=== PATIENT | male | born 1950 | race Caucasian/White ===

== ENCOUNTER → 2016-11-27 | Outpatient (REF) | payer MEDICARE ==
[~2016-11-27] MED LIST: /PANT40TA; /WARF25TA PO; /WARF5TA; AMLO10TA OR; AMLO10TAB; ASPI1TAB PO; ASPI325T; ATEN100T PO; AVOD0.5C PO; CHONDROITIN; COUM10TA; DULO30CA PO; IBUP400T; IBUP600T26 PO; K-TA10TA OR; KLOR1TAB69 PO; LIPI10TA PO; LISI20TA5; NABU500T OR; NABU50TA PO; NIAS500T2; OXYC-274 PO; PANT40TA2 PO; PERC5TAB8; PERCOCET PO; TYLE325T5 PO; VOLTAREN TOP; ZEST20TA4 PO; ZYLO300T4 PO; [UNRECOGNIZED DRUG - OTHER]; [UNRECOGNIZED DRUG - OTHER]; alfuzosin OR; aspirin; fish oil; potassium OR; uroxatral
== END ==
LOC: M LAB REF 12:09
PROVIDERS: ATTEND Physician Assistant Medical
DX: J02.9 Acute pharyngitis, unspecified (principal)

== ENCOUNTER 2017-07-17 10:48 | Outpatient (CLI) | payer MEDICARE ==
[~2017-07-17] VITALS: Ht 165.1 cm; Wt 95.7 kg
[~2017-07-17 10:48] MED LIST changes: +ADVI200C PO; +ALFU10TA2 PO; +ALLO15TA PO; +AMLO10TA2 PO; +ATOR1TAB19 PO; +CINN500C9 PO; +DUTA1CAP PO; +IBUP-1022 PO; -IBUP600T26 PO; +LISI20TA3 PO; +NABU500T PO; -NABU50TA PO; +OMEP40CA2 PO; +POTA10CA PO
[2017-07-17] MEDS ORDERED: NS 1,000 ML IV SCH (11:00)
[2017-07-17] MEDS ORDERED: LIDOCAINE 2% INJ 100 MG/5 ML SDV (FOR ANES.) As Ordered ONE (12:50)
[2017-07-17] MEDS ORDERED: PROPOFOL 500 MG/50 ML VIAL As Ordered ONE (12:50)
--- NOTE | 2017-07-17 13:09 | ROOR ---
Patient Name: Winston Wagner Procedure Date: 07/17/2017 12:46 PM Date of : 1950 Age: 67 Room: [facility] Gender: Male Note Status: Finalized Procedure: Colonoscopy Indications: Screening patient at increased risk: Family history of 1st-degree relative with colorectal cancer at age 60 years (or older) Providers: Baldo Gallardo Jr, MD Referring MD: JOSETTE ADAME JR, MD Requesting Provider: Medicines: Propofol per Anesthesia Complications: No immediate complications. Procedure: Pre-Anesthesia Assessment: - Prior to the procedure, a History and Physical was performed, and patient medications and allergies were reviewed. The patient is competent. The risks and benefits of the procedure and the sedation options and risks were discussed with the patient. All questions were answered and informed consent was obtained. Patient identification and proposed procedure were verified by the physician and the nurse in the pre-procedure area and in the procedure room. Mental Status Examination: alert and oriented. Airway Examination: normal oropharyngeal airway and neck mobility. Respiratory Examination: clear to auscultation. CV Examination: normal. ASA Grade Assessment: II - A patient with mild systemic disease. After reviewing the risks and benefits, the patient was deemed in satisfactory condition to undergo the procedure. The anesthesia plan was to use moderate sedation / analgesia (conscious sedation). Immediately prior to administration of medications, the patient was re-assessed for adequacy to receive sedatives. The heart rate, respiratory rate, oxygen saturations, blood pressure, adequacy of pulmonary ventilation, and response to care were monitored throughout the procedure. The physical status of the patient was re-assessed after the procedure. The Colonoscope was introduced through the anus and advanced to the cecum, identified by appendiceal orifice and ileocecal valve. The colonoscopy was performed without difficulty. The patient tolerated the procedure well. The quality of the bowel preparation was adequate and good. Findings: Multiple small and large-mouthed diverticula were found in the sigmoid colon. The rectum, descending colon, transverse colon, ascending colon, cecum, appendiceal orifice and ileocecal valve appeared normal. A small polyp was found in the hepatic flexure. The polyp was removed with a jumbo cold forceps. Resection and retrieval were complete. Impression: - Diverticulosis in the sigmoid colon. - The rectum, descending colon, transverse colon, ascending colon, cecum, appendiceal orifice and ileocecal valve are normal. - One small polyp at the hepatic flexure, removed with a jumbo cold forceps. Resected and retrieved. Recommendation: - Repeat colonoscopy in 5 years for surveillance. Baldo Gallardo MD Baldo Gallardo Jr, MD 07/17/2017 1:08:48 PM This report has been signed electronically. Number of Addenda: 0 Note Initiated On: 07/17/2017 12:46 PM Estimated Blood Loss: Estimated blood loss: none.
[2017-07-17 13:25] VITALS: BP 137/78
== END 2017-07-17 13:39 | disposition home or self-care (01) ==
LOC: M OPP 10:48
PROVIDERS: ATTEND Surgery
DX: Z12.11 Encounter for screening for malignant neoplasm of colon (principal); Z80.0 Family history of malignant neoplasm of digestive organs; D12.3 Benign neoplasm of transverse colon; K57.30 Diverticulosis of large intestine without perforation or abscess without bleeding; K21.9 Gastro-esophageal reflux disease without esophagitis; E66.9 Obesity, unspecified; I10 Essential (primary) hypertension; E78.5 Hyperlipidemia, unspecified; R12 Heartburn; M19.90 Unspecified osteoarthritis, unspecified site; Z96.653 Presence of artificial knee joint, bilateral; Z72.0 Tobacco use; Z79.82 Long term (current) use of aspirin; Z79.899 Other long term (current) drug therapy; Z80.3 Family history of malignant neoplasm of breast; Z80.8 Family history of malignant neoplasm of other organs or systems

== ENCOUNTER 2019-02-16 08:26 | Day surgery (SDC) | payer MEDICARE ==
[~2019-02-16] VITALS: Ht 162.6 cm; Wt 99.8 kg
[~2019-02-16 08:26] MED LIST changes: -/PANT40TA; -/WARF25TA PO; -/WARF5TA; +ADVI1CAP2 PO; -ADVI200C PO; -ALLO15TA PO; +ALLO300T2 PO; -AMLO10TA2 PO; +AMLO10TA5 PO; -ASPI1TAB PO; +ASPI81TA26 PO; +COUM1TAB17; +COUM1TAB18 PO; -DULO30CA PO; +DULO30CA9 PO; +KLOR10TA76 PO; +LIDOCAINE 1% MDV 20ML VIAL SQ PRN; +LR 1,000 ML IV ONE; +NABU-126 PO; +OXYC1TAB23 PO; -PERCOCET PO; -POTA10CA PO; +PROT1TAB2; -ZYLO300T4 PO; +ZYLO300T6 PO; +ceFAZolin SOD 1 GM in D5W MINI-BAG PLUS 50 ML IV ONE
[2019-02-16] MEDS ORDERED: ROCURONIUM BROMIDE 50 MG/5 ML VIAL As Ordered ONE (09:09)
[2019-02-16] MEDS ORDERED: PROPOFOL 200 MG/20 ML VIAL As Ordered ONE (09:09)
[2019-02-16] MEDS ORDERED: fentaNYL 250 MCG/5 ML INJECTION (J3010) As Ordered ONE (09:09)
[2019-02-16] MEDS ORDERED: LIDOCAINE 2% INJ 100 MG/5 ML SDV (FOR ANES.) As Ordered ONE (09:09)
[2019-02-16] MEDS ORDERED: MIDAZOLAM INJ 2 MG/2 ML VIAL (J2250) As Ordered ONE (09:09)
[2019-02-16] MEDS ORDERED: BUPIVACAINE HCL 0.25% 10 ML VIAL As Ordered ONE (10:01)
[2019-02-16] MEDS ORDERED: BUPIVACAINE LIPOSOME/PF 1.3% 20ML VIAL (13.3MG/ML)(EXPAREL)(C9290 PER1MG) As Ordered ONE (10:02)
[2019-02-16] MEDS ORDERED: ePHEDrine SULFATE 25 MG/5 ML(5MG/ML) SYRINGE As Ordered ONE (10:56)
[2019-02-16] MEDS ORDERED: SUGAMMADEX SODIUM 500 MG/5 ML VIAL (BRIDION) As Ordered ONE (10:57)
[2019-02-16] MEDS ORDERED: dexameTHASONE 4 MG/ML 1ML VIAL (J1100) As Ordered ONE (10:58)
[2019-02-16] MEDS ORDERED: ONDANSETRON 4MG/2ML VIAL (J2405) As Ordered ONE (10:58)
[2019-02-16] MEDS ORDERED: KETOROLAC 60 MG/2 ML VIAL (J1885) As Ordered ONE (10:58)
--- NOTE | 2019-02-16 11:32 | RO ---
DATE OF PROCEDURE: 02/16/2019 PREOPERATIVE DIAGNOSIS: Symptomatic umbilical hernia. POSTOPERATIVE DIAGNOSIS: Symptomatic umbilical hernia. PROCEDURE: Umbilical hernia repair with ventral patch. SURGEON: Baldo Gallardo MD ANESTHESIA: General endotracheal anesthesia. ESTIMATED BLOOD LOSS: Minimal. FLUIDS: Crystalloid. BRIEF PROCEDURE SUMMARY: The patient was brought to the operating and was given general anesthesia. After adequate anesthesia and preoperative antibiotics were given the patient was prepped and draped in the usual sterile fashion. Next, a supraumbilical incision was made with skin knife. Blunt dissection was carried down to fascia. Fascia was followed circumferentially around the umbilicus and the hernia sac was transected at this level revealing omentum within the hernia sac itself. The preperitoneal fat that had been coming through the hernia sac was transected at the level of fascia and palpating the peritoneum posterior it was nice and circumferentially intact. The ventral patch was placed in the peritoneal cavity, brought up circumferentially around the fascial defect and then the tails of mesh were sutured superiorly and inferiorly with 0 Ethilon and 0 Ethilon [id number] times three was used close the fascial defect. 3-0 Vicryl was used close dermis, 4-0 Vicryl was used to approximate skin. Steri-Strips and dry sterile dressing was applied. The patient was awakened, extubated, brought to recovery room awake, alert hemodynamic stable.
[2019-02-16] MEDS ORDERED: fentaNYL 100 MCG/2 ML INJECTION (J3010) IV PRN (11:45)
[2019-02-16] MEDS ORDERED: ONDANSETRON 4MG/2ML VIAL (J2405) IV PRN ×2 (11:45)
[2019-02-16] MEDS ORDERED: NORCO, ANEXSIA 5/325MG TABLET (HYDROcodone/ACETAMINOPHEN) PO PRN (11:45)
[2019-02-16] MEDS ORDERED: PERCOCET 5MG/325MG TAB PO PRN (11:45)
[2019-02-16] MEDS ORDERED: LR 1,000 ML IV SCH ×2 (11:45)
[2019-02-16 12:40] VITALS: BP 125/58
== END 2019-02-16 12:55 | disposition home or self-care (01) ==
LOC: M SDC 08:26
PROVIDERS: ATTEND Surgery
DX: K42.9 Umbilical hernia without obstruction or gangrene (principal); I10 Essential (primary) hypertension; E78.5 Hyperlipidemia, unspecified; K21.9 Gastro-esophageal reflux disease without esophagitis; N40.0 Benign prostatic hyperplasia without lower urinary tract symptoms; K57.80 Diverticulitis of intestine, part unspecified, with perforation and abscess without bleeding; M10.9 Gout, unspecified; Z79.82 Long term (current) use of aspirin; Z79.899 Other long term (current) drug therapy
CPT/HCPCS: 49585; 88302; C1781; C9290; J0690; J1100; J1885; J2250; J2405; J3010

== ENCOUNTER → 2019-08-20 | Outpatient (CLI) | payer MEDICARE ==
[~2019-08-20] MED LIST changes: -LIDOCAINE 1% MDV 20ML VIAL SQ PRN; +LISI20TA20 PO; -LISI20TA3 PO; -LR 1,000 ML IV ONE; -OMEP40CA2 PO; +OMEP40CA97 PO; -ceFAZolin SOD 1 GM in D5W MINI-BAG PLUS 50 ML IV ONE
--- NOTE | 2019-08-20 17:28 | REP ---
MRI lumbar spine without contrast: History: Disc degeneration. Rule out stenosis. Technique: Sagittal and axial T1 and T2-weighted scans are acquired in the usual fashion with and without fat saturation. Sequences include spin echo, turbo spin-echo, and STIR imaging sequences. MRI findings: Lumbar vertebral body heights are preserved. Alignment is normal. There is no evidence of spondylolysis or spondylolisthesis. Normal caliber aorta is seen. No extra vertebral abnormality is appreciated. Axial and sagittal images at L2-3 demonstrate degenerative disc narrowing and desiccation. There is mild diffuse disc bulging. This indents the ventral margin of the thecal sac. No spinal stenosis or foraminal narrowing is seen. At L3-4, there is mild diffuse disc bulging as well. There is facet hypertrophy bilaterally with mild ligamentum flavum hypertrophy. No central canal stenosis is seen. No neural foraminal impingement. At L4-L5, there is mild to moderate facet hypertrophy present bilaterally, right more so than left. Minimal diffuse disc bulging is seen. No central canal stenosis is seen. There is right-sided neural foraminal narrowing at L4-5 due to disc bulging and facet hypertrophy. At L5-S1, there is central disc bulging. Facet hypertrophy is present bilaterally. No neural foraminal narrowing or spinal stenosis is seen. Impression: Degenerative spondylosis changes. There is right-sided neural foraminal encroachment at L4-5. Diffuse disc bulging at multiple levels. Electronically Signed by Darrion Crawley MD 08/23/2019 07:34 A
== END ==
LOC: M PLARAD 15:36
PROVIDERS: ATTEND Physician Assistant
DX: M51.36 Other intervertebral disc degeneration, lumbar region (principal)

== ENCOUNTER → 2022-03-12 | Outpatient (REF) | payer OTHER, MEDICARE ==
[~2022-03-12] MED LIST changes: -ALFU10TA2 PO; +ALFU10TA3 PO; -AMLO10TA5 PO; +AMLO1TAB25 PO; -DUTA1CAP PO; +DUTA1CAP2 PO; -KLOR10TA76 PO; -LISI20TA20 PO; +LISI20TA37 PO; -NABU-126 PO; +NABU-71 PO; +OMEP40CA4 PO; -OMEP40CA97 PO; +POTA-136 PO
== END ==
LOC: M LAB REF 16:20
PROVIDERS: ATTEND Internal Medicine
DX: I10 Essential (primary) hypertension (principal)

== ENCOUNTER → 2022-05-29 | Outpatient (CLI) | payer OTHER | LOC: M CARPUL 09:46 | PROVIDERS: ATTEND Internal Medicine | DX: I10 Essential (primary) hypertension (principal); I35.8 Other nonrheumatic aortic valve disorders ==

== ENCOUNTER → 2022-07-14 | Outpatient (CLI) | payer OTHER ==
[~2022-07-14] MED LIST changes: +ALLO10TA PO; +CINN500C15 PO; +GABA-1171 PO; +MULT120T PO; +OMEG100011 PO; +SPIR-10 PO; +[UNRECOGNIZED DRUG - CODE] PO
== END ==
LOC: M LABSMTC 09:59
PROVIDERS: ATTEND Anesthesiology
DX: Z01.812 Encounter for preprocedural laboratory examination (principal); Z20.822 Contact with and (suspected) exposure to COVID-19

== ENCOUNTER 2022-07-18 07:51 | Day surgery (SDC) | payer OTHER ==
[~2022-07-18] VITALS: Ht 162.6 cm; Wt 91.1 kg
[~2022-07-18 07:51] MED LIST changes: +NS 1,000 ML IV ONE
[2022-07-18] MEDS ORDERED: LIDOCAINE 2% 100MG/5ML SDV (FOR ANES.) As Ordered ONE (09:21)
[2022-07-18] MEDS ORDERED: propofoL 200 MG/20 ML VIAL As Ordered ONE (09:21)
[2022-07-18] MEDS ORDERED: hydrALAZINE 20MG/ML 1ML VIAL (J0360 PER 20MG) As Ordered ONE (09:23)
[2022-07-18 09:55] VITALS: BP 160/72
== END 2022-07-18 09:59 | disposition home or self-care (01) ==
LOC: M OPP 07:51
PROVIDERS: ATTEND Surgery
DX: Z12.11 Encounter for screening for malignant neoplasm of colon (principal); Z86.010 Personal history of colon polyps; K51.40 Inflammatory polyps of colon without complications; K57.30 Diverticulosis of large intestine without perforation or abscess without bleeding; I10 Essential (primary) hypertension; E78.00 Pure hypercholesterolemia, unspecified; K21.00 Gastro-esophageal reflux disease with esophagitis, without bleeding; N40.0 Benign prostatic hyperplasia without lower urinary tract symptoms; F17.220 Nicotine dependence, chewing tobacco, uncomplicated; Z79.02 Long term (current) use of antithrombotics/antiplatelets; Z79.1 Long term (current) use of non-steroidal anti-inflammatories (NSAID); Z79.83 Long term (current) use of bisphosphonates; Z79.891 Long term (current) use of opiate analgesic; Z79.899 Other long term (current) drug therapy
CPT/HCPCS: 45385; 88305; J0360

== ENCOUNTER → 2023-01-06 | Outpatient (REF) | payer OTHER ==
[~2023-01-06] MED LIST changes: -NS 1,000 ML IV ONE
[2023-01-06 17:54] LABS: APPEARANCE, URINE CLEAR (CLEAR); BACTERIA, URINE AUTO NEGATIVE (NEGATIVE); BILIRUBIN, URINE AUTO NEGATIVE (NEGATIVE); BLOOD, URINE BLOOD NEGATIVE (NEGATIVE); COLOR, URINE YELLOW (YELLOW); GLUCOSE, URINE (UA) AUTO NEGATIVE (NEGATIVE); KETONE, URINE AUTO 1+ mg/dL (NEGATIVE); LEUKOCYTE ESTERASE, URINE AUTO NEGATIVE (NEGATIVE); NITRITE, URINE AUTO NEGATIVE (NEGATIVE); PROTEIN, URINE AUTO NEGATIVE (NEGATIVE); RBC, URINE AUTO 2 /HPF (0-3); SPECIFIC GRAVITY URINE AUTO 1.012 (1.002-1.035); SQUAMOUS EPITHELIAL CELL UR AU 0 /HPF (0-6); UROBILINOGEN, URINE AUTO 0.2 mg/dL (0.0-2.0); WBC, URINE AUTO 1 /HPF (0-3)
== END ==
LOC: M SMT 17:29
PROVIDERS: ATTEND Urology
DX: R39.9 Unspecified symptoms and signs involving the genitourinary system (principal)

== ENCOUNTER → 2023-01-14 | Outpatient (REF) | payer OTHER ==
[2023-01-14 13:53] LABS: CORTISOL AM 24.4 UG/DL (4.3-22.4)
== END ==
LOC: M LAB REF 12:24
PROVIDERS: ATTEND Internal Medicine
DX: E87.1 Hypo-osmolality and hyponatremia (principal)

== ENCOUNTER → 2023-01-15 | Outpatient (CLI) | payer OTHER | LOC: M SLEEP 20:00 | PROVIDERS: ATTEND Physician Assistant | DX: R40.0 Somnolence (principal); R06.83 Snoring ==

== ENCOUNTER → 2023-06-18 | Outpatient (REF) | payer OTHER ==
[2023-06-18 13:01] LABS: INR 0.88; PROTHROMBIN TIME 12.1 SECONDS (12.5-14.5)
== END ==
LOC: M LAB REF 12:04
PROVIDERS: ATTEND Internal Medicine
DX: Z01.818 Encounter for other preprocedural examination (principal)

== ENCOUNTER 2023-07-28 22:53 | Observation (INO) | payer OTHER ==
[~2023-07-28] VITALS: Ht 162.6 cm; Wt 74.5 kg
[2023-07-28 23:58] LABS: BASO % 0.3 % (0.0-1.0); EOS # 0.2 10^3/uL (0.0-0.5); EOS % 2.2 % (0.0-3.0); HEMATOCRIT 36.9 % (42.0-52.0); HEMOGLOBIN 13.2 g/dl (13.5-17.5); LYMPH # 1.9 10^3/uL (1.5-5.0); LYMPH % 26.8 % (24.0-44.0); MEAN CORPUSCULAR HEMOGLOBIN 30.5 pg (27.0-33.0); MEAN CORPUSCULAR HGB CONC 35.8 g/dl (32.0-36.5); MEAN CORPUSCULAR VOLUME 85.2 fl (80.0-96.0); MONO # 0.7 10^3/uL (0.0-0.8); MONO % 9.7 % (2.0-8.0); NEUTROPHILS # 4.4 10^3/uL (1.5-8.5); NEUTROPHILS % 60.7 % (36.0-66.0); PLATELET COUNT, AUTOMATED 194 10^3/uL (150-450); RED BLOOD COUNT 4.33 10^6/uL (4.30-6.10); WHITE BLOOD COUNT 7.2 10^3/uL (4.0-10.0)
[2023-07-29 00:17] LABS: ETHYL ALCOHOL (ETHANOL) < 0.003 % (0.000-0.010)
[2023-07-29 00:18] LABS: ACETAMINOPHEN LEVEL 3.8 UG/ML (10.0-20.0); SALICYLATE LEVEL < 3.0 MG/DL (<30)
[2023-07-29 00:19] LABS: ALBUMIN 4.2 G/DL (3.2-5.2); ALKALINE PHOSPHATASE 57 U/L (46-116); ALT/SGPT 24 U/L (7.0-40); AST/SGOT 21 U/L (<34); BILIRUBIN,DIRECT 0.2 MG/DL (<0.4); BILIRUBIN,TOTAL 0.5 MG/DL (0.3-1.2); BLOOD UREA NITROGEN 16 MG/DL (9-23); CALCIUM LEVEL 9.6 MG/DL (8.3-10.6); CARBON DIOXIDE LEVEL 28 MMOL/L (20-31); CHLORIDE LEVEL 99 MMOL/L (98-107); CPK CREATINE PHOSPHOKINASE 107 U/L (46-171); CREATININE FOR GFR 0.61 MG/DL (0.70-1.30); GLOMERULAR FILTRATION RATE > 60.0 (>42); GLUCOSE, FASTING 108 MG/DL (74-106); POTASSIUM SERUM 4.2 MMOL/L (3.5-5.1); SODIUM LEVEL 134 MMOL/L (136-145)
[2023-07-29 01:08] LABS: METHADONE URINE NEGATIVE (NEGATIVE); OPIATES URINE NEGATIVE (NEGATIVE)
[2023-07-29 01:09] LABS: AMPHETAMINES LEVEL URINE NEGATIVE (NEGATIVE); BARBITURATES URINE NEGATIVE (NEGATIVE); BENZODIAZEPINES URINE NEGATIVE (NEGATIVE); CANNABINOIDS URINE NEGATIVE (NEGATIVE); COCAINE METABOLITE URINE NEGATIVE (NEGATIVE); PHENCYCLIDINE URINE NEGATIVE (NEGATIVE)
[2023-07-29 06:07] LABS: HEMATOCRIT 35.4 % (42.0-52.0); HEMOGLOBIN 12.6 g/dl (13.5-17.5); MEAN CORPUSCULAR HEMOGLOBIN 30.4 pg (27.0-33.0); MEAN CORPUSCULAR HGB CONC 35.6 g/dl (32.0-36.5); MEAN CORPUSCULAR VOLUME 85.3 fl (80.0-96.0); PLATELET COUNT, AUTOMATED 193 10^3/uL (150-450); RED BLOOD COUNT 4.15 10^6/uL (4.30-6.10)
[2023-07-29 06:26] LABS: ACETAMINOPHEN LEVEL < 2.0 UG/ML (10.0-20.0); ALKALINE PHOSPHATASE 51 U/L (46-116); ALT/SGPT 22 U/L (7.0-40); AST/SGOT 19 U/L (<34); BILIRUBIN,TOTAL 0.6 MG/DL (0.3-1.2); BLOOD UREA NITROGEN 12 MG/DL (9-23); CALCIUM LEVEL 9.7 MG/DL (8.3-10.6); CARBON DIOXIDE LEVEL 28 MMOL/L (20-31); CHLORIDE LEVEL 101 MMOL/L (98-107); CREATININE FOR GFR 0.59 MG/DL (0.70-1.30); GLOMERULAR FILTRATION RATE > 60.0 (>42); GLUCOSE, FASTING 99 MG/DL (74-106); POTASSIUM SERUM 3.7 MMOL/L (3.5-5.1); SODIUM LEVEL 137 MMOL/L (136-145); TOTAL PROTEIN 6.7 G/DL (5.7-8.2)
[2023-07-29] MEDS ORDERED: ALLO300T2 PO (06:37)
[2023-07-29] MEDS ORDERED: VITA100093 PO (06:37)
[2023-07-29] MEDS ORDERED: VITMTA PO (06:37)
[2023-07-29] MEDS ORDERED: GABA-282 PO (06:37)
[2023-07-29] MEDS ORDERED: OMEP1CAP73 PO (06:37)
[2023-07-29] MEDS ORDERED: LISI40TA4 PO (06:37)
[2023-07-29] MEDS ORDERED: TRAM50TA2 PO (06:37)
[2023-07-29] MEDS ORDERED: OXYB10TA23 PO (06:37)
[2023-07-29] MEDS ORDERED: HOME MED LIST COMPLETE! XX SCH (06:40)
[2023-07-29 08:00] VITALS: BP 154/70; TEMP 97.9; O2SAT 97
[2023-07-29] MEDS ORDERED: lisinopriL 40MG TAB PO SCH (09:00)
[2023-07-29] MEDS ORDERED: GABAPENTIN 300 MG CAP PO SCH (09:00)
[2023-07-29] MEDS ORDERED: POTASSIUM CHLORIDE 10MEQ SR TABLET PO SCH (09:00)
[2023-07-29] MEDS ORDERED: ASPIRIN 81MG ENTERIC TABLET PO SCH (09:00)
[2023-07-29] MEDS ORDERED: allopurinoL 300 MG TAB PO SCH (09:00)
[2023-07-29] MEDS ORDERED: OMEPRAZOLE 20MG CAP PO SCH (09:00)
[2023-07-29] MEDS ORDERED: ENOXAPARIN 40MG/0.4ML SYRINGE (J1650 PER 10MG) SC SCH (09:00)
[2023-07-29] MEDS ORDERED: SPIRONOLACTONE 25 MG TAB PO SCH (09:00)
[2023-07-29] MEDS ORDERED: DUTASTERIDE 0.5 MG CAP (AVODART) PO SCH (09:00)
[2023-07-29] MEDS ORDERED: ACETAMINOPHEN TAB 650MG DOSE (2X325MG) PO PRN (09:15)
[2023-07-29] MEDS ORDERED: traMADol 50 MG TAB PO PRN (09:15)
[2023-07-29 12:00] VITALS: BP 138/65; TEMP 98.1; O2SAT 96
[2023-07-29] MEDS ORDERED: oxyBUTYnin *DITROPAN XL* 5 MG TABCR PO SCH (21:00)
[2023-07-29] MEDS ORDERED: MULTIVITAMINS/MINERALS THERAP 1 TAB PO SCH (21:00)
[2023-07-29] MEDS ORDERED: ATORVASTATIN 10 MG TAB PO SCH (21:00)
== END 2023-07-29 14:10 | disposition home or self-care (01) ==
LOC: M ED 22:53 → M ED INP 22:54 → ENRESERV 07-29 05:43 → M ICU 07-29 06:30
PROVIDERS: ADMIT Internal Medicine; ATTEND Internal Medicine
DX: T50.901A Poisoning by unspecified drugs, medicaments and biological substances, accidental (unintentional), initial encounter (principal); R00.0 Tachycardia, unspecified; I44.0 Atrioventricular block, first degree; K21.9 Gastro-esophageal reflux disease without esophagitis; M10.9 Gout, unspecified; I10 Essential (primary) hypertension; N40.0 Benign prostatic hyperplasia without lower urinary tract symptoms; E78.5 Hyperlipidemia, unspecified; E55.9 Vitamin D deficiency, unspecified; Z79.82 Long term (current) use of aspirin; Z79.899 Other long term (current) drug therapy
CPT/HCPCS: 36415; 80048; 80053; 80076; 80143; 80307; 82077; 82550; 83605; 84443; 85025; 85027; 87635; 93005; 93041; 94760; 96372; 97161; 99285; G0378; J1650

== ENCOUNTER → 2025-06-01 | Outpatient (REF) | payer OTHER ==
[~2025-06-01] MED LIST changes: +ALFU10TA23 PO; -ALFU10TA3 PO; +GABA-1172 PO; +LISI40TA10 PO; +OMEP1CAP73 PO; +OXYB10TA23 PO; +TRAM50TA2 PO; +VITA100093 PO; +VITMTA PO
[2025-06-01 14:39] LABS: INR 0.92
== END ==
LOC: M LAB REF 14:19
PROVIDERS: ATTEND Internal Medicine
DX: Z01.818 Encounter for other preprocedural examination (principal)